=== PATIENT | male | born 1960 | race Caucasian/White ===

== ENCOUNTER 2018-05-31 07:11 | Observation (INO) | payer OTHER ==
[~2018-05-31] VITALS: Ht 180.3 cm; Wt 74.8 kg
[2018-05-31 07:46] LABS: HEMATOCRIT 38.4 % (39.0-50.0); HEMOGLOBIN 13.2 g/dl (14.0-18.0); IMMATURE GRANULOCYTES 0.5 % (0.0-5.0); MEAN CELL VOLUME 85.7 fL CALC (80.0-100.0); MEAN CORPUSCULAR HGB 29.5 pG CALC (26.0-32.0); MEAN CORPUSCULAR HGB CONC 34.4 g/L CALC (32.0-36.0); NEUT# 3.36 thou/uL (1.82-7.42); RED BLOOD COUNT 4.48 mill/uL (4.70-6.10); RED CELL DISTRI WIDTH 12.5 % (11.5-15.5)
[2018-05-31 07:55] LABS: ALBUMIN 3.5 g/dL (3.2-5.0); ALKALINE PHOSPHATASE 61 u/l (38-126); ANION GAP 13 (6-22 (CALC)); BILIRUBIN, TOTAL 1.6 mg/dL (0.0-1.4); BUN 12 mg/dL (9-20); BUN/CREATININE RATIO 16 (12-20 (CALC)); CARBON DIOXIDE 30 mmol/l (22-30); CHLORIDE 102 mmol/l (95-108); CREATININE 0.8 mg/dL (0.7-1.3); GFR > 60 ML/MIN (>=60 (CALC)); GFR FOR AFR.AMER. > 60 ML/MIN (>=60 (CALC)); POTASSIUM 4.2 mmol/l (3.5-5.1); SGOT/AST 27 u/l (17-59); SGPT/ALT 36 u/l (21-72); SODIUM 141 mmol/l (137-146)
[2018-05-31 08:07] LABS: MYOGLOBIN 64 ng/mL (0 - 121)
[2018-05-31] MEDS ORDERED: LISINOPRIL2.5 MG PO (08:23)
[2018-05-31] MEDS ORDERED: ADULT ASPIRIN E81 MG PO (08:23)
[2018-05-31] MEDS ORDERED: HYTRIN1 M1 PO (08:24)
[2018-05-31 09:15] VITALS: BP 130/73
[2018-05-31 12:00] VITALS: BP 127/71
[2018-05-31 15:45] VITALS: BP 121/74
[2018-05-31 20:15] VITALS: BP 130/72
[2018-06-01 00:31] VITALS: BP 132/75
[2018-06-01 01:07] LABS: URINE BILIRUBIN - DIPSTICK NEGATIVE (NEGATIVE); URINE BLOOD DIPSTICK NEGATIVE (NEGATIVE); URINE COLOR YELLOW; URINE GLUCOSE - DIPSTICK >=1000 mg/dL (NEGATIVE); URINE KETONE NEGATIVE (NEGATIVE); URINE LEUK ESTERASE NEGATIVE (NEGATIVE); URINE NITRITE - DIPSTICK NEGATIVE (Negative); URINE PH 6.5 (4.5-8.0); URINE PROTEIN - DIPSTICK NEGATIVE (NEG-TRACE); URINE SPECIFIC GRAVITY <=1.005; URINE UROBILINOGEN - DIPSTICK 0.2 E.U./dL (0.2)
[2018-06-01 01:08] LABS: URINE CLARITY CLEAR
[2018-06-01 04:44] VITALS: BP 134/77
[2018-06-01 04:50] VITALS: BP 148/88
[2018-06-01 08:00] VITALS: BP 118/67
[2018-06-01 11:20] VITALS: BP 124/71
== END 2018-06-01 15:00 | disposition designated cancer center or children's hospital (05) | DRG 313 ==
LOC: ED 07:11 → ED-I 08:00 → ED 08:12 → MS2 08:13
PROVIDERS: Emergency Medicine; ADMIT General Practice; ATTEND General Practice
PROC: 3E0234Z Introduction of Serum, Toxoid and Vaccine into Muscle, Percutaneous Approach (ICD-10-PCS; principal; 2018-06-01)
DX: R07.9 Chest pain, unspecified (principal); E11.9 Type 2 diabetes mellitus without complications; Z79.4 Long term (current) use of insulin; N40.0 Benign prostatic hyperplasia without lower urinary tract symptoms; Z23 Encounter for immunization
CPT/HCPCS: J1650